=== PATIENT | male | born 1980 | race Caucasian/White ===

== ENCOUNTER 2022-03-27 13:22 | Emergency (ER) | payer MEDICAID, SELFPAY ==
[2022-03-27 13:28] VITALS: BP 123/74; PULSE 75; RESP 16; TEMP 36.9; O2SAT 98
--- NOTE | 2022-03-27 13:32 | ED.LOWEXIN ---
HPI - Extremity Injury (Lower) General Chief Complaint: Extremity Injury, Lower Stated Complaint: Achilles Tendon Right foot Time Seen by Provider: 03/27/22 13:36 Source: patient and RN notes reviewed Mode of arrival: ambulatory Limitations: no limitations History of Present Illness HPI Narrative: 41-year-old male presents with multiple concerns. He reports 1 week ago he started feeling pain in his posterior heel, worsens when he is walking for a long time. Reports he has been hiking. Reports no pain at rest. He reports after he felt pain he otitis frozen water bottle to his leg, 1 hand tied at the water bottle was frozen to his skin, he now has a red area on the ankle. In a separate complaint he reports sinus congestion and drainage. He denies fever, aches, chills, sweats, cough, sore throat. Reports he recently moved here from [facility] MD complaint: ankle injury Related Data Allergies Allergy/AdvReac Type Severity Reaction Status Date / Time No Known Allergies Allergy Verified 03/27/22 13:28 Review of Systems Review of Systems: CONSTITUTIONAL: Denies malaise, chills, sweats, or fever. SKIN: Denies rash or itching, laceration, abrasion, redness, warmth, swelling.. Reports red area on the ankle MUSCULOSKELETAL: Reports right posterior ankle pain NEUROLOGIC: Denies numbness, weakness All systems reviewed & are unremarkable except as noted in HPI and below PMFSH Comments At time of signature, agree with nursing past medical, surgical, social and family history. There is no relevant family history pertinent to the presenting complaint Exam Narrative: GENERAL: Well-appearing, well-nourished, and in no acute distress. HEAD: Normocephalic, atraumatic. EYES: PERRLA, conjunctivae clear NECK: Supple. CHEST: Speaks in full sentences. No respiratory distress. HEART: Regular rate and rhythm. Normal and equal peripheral pulses. EXTREMITIES: Left ankle, foot, digits have normal strength and sensation, normal range of motion. No edema or ecchymosis. 5/5 strength with ankle in digit flexion and extension. Normal sensation with sensitivity to light touch and pain. Mild medial posterior tenderness. No open wounds, no skin tenting, no devitalized tissue or atrophy, no trophic changes, no obvious deformity, alignment normal, nearby joints and structures intact. Distal pulses palpable and equal bilaterally, skin warm, dry, pink. Capillary refill less than 3 seconds. SKIN: Warm, dry. 5 cm x 3 cm sq area of erythema with scattered scabs, no induration, warmth, drainage noted to the medial posterior ankle NEURO: Alert and oriented x3. PSYCH: Normal mood and affect Course Course Emergency Course: Patient is aware of diagnosis, understands and agrees to treatment plan. Anticipatory guidance given. Patient agrees to follow-up as directed and is aware of reasons to seek care at the emergency department. Portions of this record may have been created with voice recognition software Level of Care: Express Care Visit Vital Signs Vital signs: Vital Signs Temperature 98.5 F 03/27/22 13:28 Pulse Rate 75 03/27/22 13:28 Respiratory Rate 16 03/27/22 13:28 Blood Pressure 123/74 03/27/22 13:28 Pulse Oximetry 98 03/27/22 13:28 Oxygen Delivery Room Air 03/27/22 13:28 Temperature 98.5 F 03/27/22 13:28 Pulse Rate 75 03/27/22 13:28 Respiratory Rate 16 03/27/22 13:28 Blood Pressure 123/74 03/27/22 13:28 Pulse Oximetry 98 03/27/22 13:28 Oxygen Delivery Room Air 03/27/22 13:28 Reviewed. MDM - Extremity Injury (Lower) MDM Narrative Medical decision making narrative: Patients injury and pain is consistent with musculoskeletal etiology. No signs of neurological or vascular compromise on exam. Compartments and tissues are soft without signs of compartment syndrome. Pain is felt appropriate for further evaluation on an outpatient basis. Differential diagnosis considered: Suarez virus, strep pharyngitis, allerg
== END 2022-03-27 14:12 | disposition home or self-care (01) ==
PROVIDERS: Emergency Provider Nurse Practitioner; PCP Family Medicine
DX: S86.001A Unspecified injury of right Achilles tendon, initial encounter (principal); X58.XXXA Exposure to other specified factors, initial encounter; Y93.01 Activity, walking, marching and hiking; L53.9 Erythematous condition, unspecified; S89.91XA Unspecified injury of right lower leg, initial encounter; X31.XXXA Exposure to excessive natural cold, initial encounter; J06.9 Acute upper respiratory infection, unspecified
CPT/HCPCS: 99213; G0463